=== PATIENT | male | born 1975 | race African-American/Black ===

== ENCOUNTER 2019-05-09 09:59 | Emergency (ER) | payer OTHER ==
[~2019-05-09] VITALS: Ht 180.3 cm; Wt 102.1 kg
[2019-05-09] MEDS ORDERED: AMOXICILLIN500 M1 PO (12:01)
[2019-05-09 12:24] VITALS: BP 133/92
== END 2019-05-09 12:25 | disposition home or self-care (01) ==
LOC: ER 09:59
DX: J02.0 Streptococcal pharyngitis (principal)